=== PATIENT | female | born 1945 | race Caucasian/White ===

== ENCOUNTER 2017-07-04 11:24 | Inpatient (IN) | payer MEDICARE ==
[2017-07-04 11:44] LABS: #Basophils 0.1 thou/uL (0.0-0.2); #Eosinphils 0.1 thou/uL (0.0-0.7); #Lymphocytes 1.2 thou/uL (1.20-3.40); #Monocytes 1.3 thou/uL (0.11-0.59); #Neutrophils 11.3 thou/uL (1.40-6.50); %Basophils 0.4 % (0.0-1.0); %Eosinophils 0.4 % (0.0-10.0); %Lymphocytes 8.4 % (21.0-51.0); %Monocytes 9.2 % (0.0-10.0); %Neutrophils 81.7 % (42.0-75.0); Hemoglobin 8.8 g/dL (12.0-16.0); Mean Corpuscular HGB CONC 30.2 g/dL (32.0-36.0); Mean Corpuscular Hemoglobin 22.9 pg (27.0-31.0); Mean Platelet Volume 9.4 fL (7.4-10.4); Platelet Count 267 thou/uL (130-400); RBC Distribution Width 15.8 % (11.5-14.5); Red Blood Cell (RBC) Count 3.84 mill/uL (4.20-5.40); White Blood Cell (WBC) Count 13.8 thou/uL (4.8-10.8)
[2017-07-04 11:52] LABS: INR-International Normal Ratio 1.1; PTT 24.1 SEC (22.9-36.1); Prothrombin Time 14.4 SEC (12.0-14.7)
[2017-07-04 12:13] LABS: ALT (SGPT) 15 U/L (8-55); AST (SGOT) 26 U/L (5-34); Albumin 4.2 g/dL (3.4-4.8); Alkaline Phosphatase 71 U/L (40-150); Anion Gap 16 mmol/L (10-20); BUN (Urea Nitrogen) 10 mg/dL (9.8-20.1); Bilirubin, Total 0.4 mg/dL (0.2-1.2); Calc. Creatinine Clearance 0 mL/min (70-130); Calcium 9.9 mg/dL (7.8-10.44); Carbon Dioxide 20 mmol/L (23-31); Chloride 105 mmol/L (98-107); Estimated GFR-MDRD 51; Globulin 2.8 g/dL (2.4-3.5); Glucose 152 mg/dL (83-110); Potassium 3.7 mmol/L (3.5-5.1); Sodium 137 mmol/L (136-145)
[2017-07-04 12:23] LABS: Troponin I 0.737 ng/mL (< 0.028)
[2017-07-04] MEDS ORDERED: Nitroglycerin 0.4 MG TAB (25 Tab Bottle) SL PRN (12:29)
[2017-07-04] MEDS ORDERED: Morphine 4 MG/ML VIAL SLOW IVP PRN ×2 (12:29)
[2017-07-04] MEDS ORDERED: Aggrastat 12.5 MG/250 ML 250 ML IVPB SCH (12:30)
[2017-07-04] MEDS: Sodium Chloride 0.9% 1,000 ML IV SCH ×2 (12:30→22:51)
[2017-07-04] MEDS ORDERED: Mag-Al 1200 mg/1200 mg/30 ML UDCUP PO PRN (12:34)
[2017-07-04] MEDS ORDERED: Milk Of Magnesia 30 ML UDCUP PO PRN (12:34)
[2017-07-04] MEDS ORDERED: Ondansetron HCl/PF 4 MG/2 ML Vial IVP PRN (12:40)
[2017-07-04 12:56] LABS: Iron 21 ug/dL (50-170); Iron Binding Capacity, Total 465 mcg/dL (265-497)
--- NOTE | 2017-07-04 13:55 | RAD ---
CHEST ONE VIEW: History: 72-year-old female for post interventional cardiology evaluation. FINDINGS: Monitor leads overlie the chest. Evidence for a moderate sized hiatal hernia. Heart size is within no rmal limits. Mild increased bronchovascular markings bilaterally without confluent pneumonia. No pneu mothorax or pleural effusion. IMPRESSION: Moderate sized hiatal hernia. Atherosclerosis of the aorta with ectasia. No evidence for pneumothorax or confluent pneumonia or pleural effusion. POS: C
--- NOTE | 2017-07-04 14:27 | HP ---
HISTORY: Ms. Vero Victoria is a 72-year-old white female without any significant past medical history. She does not take any medications except for vitamins. She had an episode of chest pain 3-4 days ago that lasted for 5-10 minutes. Then, this morning at approximately 8:30 a.m., she had onset of substernal chest pressure associated with diaphoresis, but no nausea, vomiting, or shortness of breath. Eventually, she called 911 and was found to have changes consistent with STEMI on her EKG and was brought to [facility] for further evaluation. She continues to have ongoing pain. She was given aspirin 324 mg and 1 sublingual nitroglycerin. PAST MEDICAL HISTORY: She denies any history of hypertension, diabetes or hypercholesterolemia. No history of anemia. MEDICATIONS: Vitamins. ALLERGIES: PENICILLIN. OPERATIONS: Cataract surgery. SOCIAL HISTORY: She smoked one-half pack per day, but stopped 3 years ago. She does not drink. FAMILY HISTORY: Father of myocardial infarction and brothers had myocardial infarction. REVIEW OF SYSTEMS: A 12 point review of systems is unremarkable, even denying any history of hematochezia or melena. PHYSICAL EXAMINATION: VITAL SIGNS: Blood pressure 120/80, pulse 90. HEENT: PERRL with bilateral ear creases. LUNGS: Chest is clear. CARDIAC: S1 and S2 are normal, without any S3, S4 or murmurs. Carotid upstrokes normal, without bruits. ABDOMEN: Normal bowel sounds, without tenderness or organomegaly. EXTREMITIES: Revealed no clubbing, cyanosis or edema. NEUROLOGIC: Grossly intact. SKIN: Warm and dry. LABORATORY DATA AND IMAGING: (no laboratory was available while at the time of going to the cardiac catheterization lab). Hemoglobin 8.8, hematocrit 29.2, white count 13,800. INR 1.1. Sodium 137, potassium 3.7, chloride 105, carbon dioxide 20, BUN 10, creatinine 1.02, glucose 152, AST and ALT are normal. EKG revealed normal sinus rhythm with [address] segment elevation in lead 3, [address] elevation in 2, 3, V5 and V6 and 1-[address] elevation in V3 and V4. There is ST segment depression in lead 1. IMPRESSION: 1. Inferoposterior and lateral ST-elevation myocardial infarction. 2. Former smoker. 3. Positive family history. 3. Elevated glucose. 4. Unknown cholesterol status. 5. Probable iron deficiency anemia. PLAN: The situation was discussed with the patient. It was recommended that she undergo emergent catheterization. Risks were discussed including , myocardial infarction, dye reaction, vascular injury, CVA, transfusion, renal damage requiring dialysis, limb loss, etc. Risk of stenting were discussed including , myocardial infarction, emergent CABG, restenosis, stent thrombosis, vessel perforation, etc. We discussed a bare metal stent versus drug-eluting stent. She denies any history of stomach ulcers, gastrointestinal bleeding, etc., history of stroke or any upcoming surgery. The decision was made to place a drug-eluting stent (this decision was made prior to receiving laboratory). NELSY
[2017-07-04 17:13] VITALS: BMI 25.1
[2017-07-04] MEDS ORDERED: Iopamidol 370 76% 50 ML VIAL FS ONE (17:22)
[2017-07-04] MEDS ORDERED: Iopamidol 370 76% 100 ML VIAL ONE (17:22)
[2017-07-04] MEDS ORDERED: DOPamine 400 MG/D5W 250 ML 250 ML IVPB SCH (18:30)
[2017-07-04 21:06] LABS: CKMB 463.1 ng/mL (0-6.6); Troponin I 197.779 ng/mL (< 0.028)
[2017-07-04] MEDS ORDERED: Morphine 2 MG/ML SYRINGE SLOW IVP PRN (23:03)
--- NOTE | 2017-07-04 23:16 | CCL ---
INDICATION: Inferior, posterior, lateral STEMI. Patient was brought to the catheterization lab from the emergency room. The right groin was prepped and draped. 1% lidocaine was infiltrated. A 6 Guatemalan sheath was placed into the right femoral artery. Heparin 3000 units given. The patient was also given an additional 5000 units of heparin. ACT was 200 and 300 and at the conclusion of the case an additional 2000 units of heparin was given Then. 6-Guatemalan Cris left 4 views for left coronary arteriography. This was removed and a 6-Guatemalan Cris right 4 guide catheter was inserted. A floppy choice was then advanced into the distal right coronary artery. There was some difficulty in traversing the totally occluded area. The area was predilated with an Emerge 3.0 x 15 mm balloon. Synergy 4.0 x 28 mm stent was then positioned in the mid right coronary artery and deployed. The patient was given Plavix 600 mg p.o. Final result was excellent with JUAN JOSE 3 flow. RESULTS: CORONARY ARTERIOGRAPHY: 1. Left main was normal. 2. The LAD had a 40% proximal stenosis. There was a very large high diagonal with a 70% stenosis at its takeoff and then a 40% mid vessel stenosis. 3. The circumflex was small and normal. 4. The right coronary was totally occluded in its mid portion. The distal vessel was seen to fill retrograde from the left. INTERVENTION RESULTS: The initial right coronary artery lesion was totally occluded. The final lesion was 0%. IMPRESSION: 1. Two-vessel coronary artery disease (left anterior descending and right coronary). 2. Successful stent placement in the mid RCA. NELSY
[2017-07-05 04:41] LABS: #Basophils 0.1 thou/uL (0.0-0.2); #Lymphocytes 1.1 thou/uL (1.20-3.40); #Monocytes 1.1 thou/uL (0.11-0.59); #Neutrophils 6.1 thou/uL (1.40-6.50); %Basophils 0.7 % (0.0-1.0); %Eosinophils 0.2 % (0.0-10.0); %Lymphocytes 13.7 % (21.0-51.0); %Monocytes 12.5 % (0.0-10.0); %Neutrophils 72.9 % (42.0-75.0); Hemoglobin 7.2 g/dL (12.0-16.0); Mean Corpuscular HGB CONC 30.8 g/dL (32.0-36.0); Mean Corpuscular Hemoglobin 23.3 pg (27.0-31.0); Mean Corpuscular Volume 75.7 fl (81.0-99.0); Platelet Count 277 thou/uL (130-400); RBC Distribution Width 15.5 % (11.5-14.5); Red Blood Cell (RBC) Count 3.09 mill/uL (4.20-5.40); White Blood Cell (WBC) Count 8.4 thou/uL (4.8-10.8)
[2017-07-05 04:55] LABS: Hemoglobin A1c 5.6 % (4.0-6.0)
[2017-07-05 05:12] LABS: ALT (SGPT) 66 U/L (8-55); AST (SGOT) 312 U/L (5-34); Albumin 3.5 g/dL (3.4-4.8); Alkaline Phosphatase 56 U/L (40-150); Anion Gap 12 mmol/L (10-20); BUN (Urea Nitrogen) 12 mg/dL (9.8-20.1); Bilirubin, Total 0.5 mg/dL (0.2-1.2); Calc. Creatinine Clearance 59 mL/min (70-130); Calcium 8.8 mg/dL (7.8-10.44); Carbon Dioxide 19 mmol/L (23-31); Cardiac Risk 3.4 (Less than 4.5); Chloride 111 mmol/L (98-107); Cholesterol 151 mg/dl (< 200 Desired); Estimated GFR-MDRD 62; Globulin 2.2 g/dL (2.4-3.5); Glucose 122 mg/dL (83-110); HDL Cholesterol 45 mg/dL (>60 Neg Risk); LDL Cholesterol, Calculated 94 mg/dL; Potassium 3.9 mmol/L (3.5-5.1); Protein, Total 5.7 g/dL (6.0-8.3); Sodium 138 mmol/L (136-145); Triglycerides 62 mg/dL (Less than 150)
[2017-07-05 05:21] LABS: CKMB 284.2 ng/mL (0-6.6); Critical Call CKMBM RESULT DECREASING
[2017-07-05 05:35] LABS: Critical Call Chem Troponin I RESULT DECREASING; Troponin I 192.076 ng/mL (< 0.028)
[2017-07-05] MEDS ORDERED: Furosemide 20 MG/2 ML VIAL SLOW IVP SCH (09:00)
[2017-07-05] MEDS ORDERED: FLU VACC TS2017-18 (>65YR) 0.5 ML SYRINGE IM ONE (09:00)
[2017-07-05] MEDS ORDERED: Prevnar 13-Val Conj/PF 0.5 ML SYRINGE IM ONE (09:00)
[2017-07-05] MEDS: Clopidogrel Bisulfate 75 MG TAB PO SCH (09:37)
[2017-07-05 13:00] LABS: CKMB 149.2 ng/mL (0-6.6); Critical Call CKMBM RESULT DECREASING
[2017-07-05 13:17] LABS: Critical Call Chem Troponin I RESULT DECREASING; Troponin I 138.502 ng/mL (< 0.028)
--- NOTE | 2017-07-05 15:15 | CON ---
DATE OF CONSULTATION: 07/05/2017 HISTORY OF PRESENT ILLNESS: Ms. Victoria is a 72-year-old female. She has no source of routine heal th care. She has never had a colonoscopy. She presented to the emergency department with chest discomfort. She had diaphoresis associated with this. She had ST elevation on EKG and was transferred from [facility] to [place] and went to the catheterization lab for ongoing pain until she had a right coronary s tent placed. She is pain free now. She is anemic and is receiving transfusions. She denies abdominal pain. She had blood with a bowel movement a few days ago, but it was drops of b lood after straining for hard stool. She has never thrown up blood. She denies abdominal discomfort or chronic constipation. She has had no melena. She has never had a colonoscopy. PAST MEDICAL HISTORY: Otherwise unremarkable. She says she has been treated for hypertension in the past, but her blood pressure gets low on blood pressure pills, so she did take any blood pressure pi lls. SOCIAL HISTORY: She was a mbaf-csju-y-day smoker; she does not smoke now. She is a nondrinker. Barron s not use drugs. ALLERGIES: She reports an allergy to PENICILLIN. MEDICATIONS: Prior to admission vitamins. REVIEW OF SYSTEMS: Otherwise, 10-point negative. Specifically, she denies shortness of breath on a daily basis, dyspnea on exertion, orthopnea, paroxysmal nocturnal dyspnea. She did have chest pain 3 -4 days prior to admission, but this resolved and then when it recurred, she called an ambulance. PHYSICAL EXAMINATION: GENERAL: She is afebrile. Blood pressure 111/61, heart rate 78, respiratory rate is 18, oximetry is 97. HEENT: Pupils are equal. Sclerae is anicteric. NECK: Supple. LUNGS: Clear. HEART: Regular rhythm. S1 and S2 are normal. ABDOMEN: Soft and nontender. EXTREMITIES: Without clubbing, cyanosis, or edema. LABORATORY DATA: White count 8.4, hemoglobin 7.2, platelets 277. Sodium 138, potassium 3.9, chlorid e 111, bicarbonate 19, BUN 12, creatinine 0.9. She had an iron level of 21, TIBC of 465, AST 312, AL T 66, alkaline phosphatase 56. Albumin was normal at 3.5, globulin was low at 2.2. IMPRESSION: 1. Myocardial infarction with a peak troponin of 197, status post right coronary stenting. 2. Mild hyperchloremic acidosis with ongoing mild hypotension. 3. Iron deficiency anemia, most likely secondary to chronic gastrointestinal blood loss. Gastroente rology needs to be involved, though she does not need an acute endoscopic intervention at this time. Ideally, we will need to set up endoscopy in the near future as an outpatient. She is currently philippe ng transfused. 4. Hyperglobulinemia of unclear significance. There is no urinalysis. She is not hypoalbuminemic, so I am not really sure what to make of this. 5. Elevated liver enzymes. AST greater than ALT, ? related to alcohol. She does not readily admit alcohol, says she quit smoking. Still on low-dose dopamine. I would give her another liter of saline and then switch her to half nor mal saline. In my opinion, she is stable to move out of the Critical Care Unit when the telemetry bed becomes denny ilable. GI should be counseled mainly for contact points, so they can arrange a followup endoscopy i n my opinion. This is a 70-minute consult, greater than 50% of the consult was spent on the unit coordinating care with the nursing staff, reviewing radiographs, reviewing records, EKGs, and lab work. With regard to her smoking history, it is unclear whether or not she has obstructive lung disease. C linically, she does not provide a history of this. I am very concerned that she will be noncompliant with followup, but again she is an adult. All we letitia aguilra do is arrange followup. She very quickly admits that she does like doctors and she cannot remembe r the last time she saw one.
--- NOTE | 2017-07-05 22:05 | CON ---
DATE OF CONSULTATION: 07/05/2017 GI INPATIENT CONSULTATION NOTE REQUESTING PHYSICIAN: Dr. Rogelio Simon. REASON FOR CONSULTATION: Anemia, status post recent STEMI with stent placement. HISTORY OF PRESENT ILLNESS: Vero Victoria is a very pleasant 72-year-old woman with no significant past medical or surgical history, who presented to the hospital yesterday morning after the acute onset of severe chest pain and shortness of breath. She was found to have an ST elevation myocardial infarction on EKG with elevation in troponin. She was taken to the bundle tier and labeler by Dr. Simon yesterday and was found to have 2-vessel disease with 40% occlusion of the LAD and 100% occlusion of the RCA. She underwent drug-eluting stent placement to the RCA with good result. Patient states she is essentially asymptomatic now, but she does remain on a dopamine drip today. She is having no further chest pain or shortness of breath. She is not feeling any palpitations. She is getting an echocardiogram today. Labs came back from admission and did show that she has iron deficiency anemia. Initial hemoglobin was 8.8 and this drifted down to 7.2 today. Iron studies show iron of 21 with TIBC of 465 and it is microcytic with MCV of 75.7. The patient herself denies any overt bleeding from anywhere or any gastrointestinal symptoms: She denies nausea, vomiting, heartburn, dysphagia, abdominal pain, melena, hematochezia, bright red blood per rectum, diarrhea, or constipation. Her weight has been stable recently. She has never undergone a prior EGD or colonoscopy. She does take some ibuprofen on a p.r.n. basis. From time to time she did get Plavix load yesterday, but there has been no overt bleeding today. PAST MEDICAL HISTORY: Cataract surgery, ST elevation myocardial infarction yesterday 07/04/2016, status post drug-eluting stent placement to the RCA. ALLERGIES: PENICILLIN. OUTPATIENT MEDICATIONS: Ibuprofen p.r.n., multivitamin. SOCIAL HISTORY: She is a former smoker. No alcohol use. FAMILY HISTORY: Noncontributory. PHYSICAL EXAMINATION: VITAL SIGNS: Temperature 98.3, blood pressure 94/60, pulse 83, 94% oxygen saturation on room air. GENERAL: A 72-year-old woman sitting up in bed comfortably in no acute distress. SKIN: She is a bit pale, no jaundice, no rashes were palpable. EYES: No scleral icterus. Extraocular movements are intact. ENT: Mucous membranes moist, no oral lesions. LYMPH: No submandibular or supraclavicular lymphadenopathy. THYROID: Nontender to palpation. HEART: Regular rate and rhythm. LUNGS: Clear to auscultation bilaterally. ABDOMEN: Soft and nontender to palpation. EXTREMITIES: No peripheral edema. VESSELS: Radial pulses 2+ bilaterally. NEUROLOGICAL: Cranial nerves II-XII intact bilaterally. No focal deficits. LABORATORY STUDIES: Hemoglobin 7.2, MCV 75.7, iron 21, TIBC 465, WBC 8.4, platelets 277. INR 1.1. CK-MB is 149. Sodium 138, potassium 3.9, BUN 12, creatinine 0.90, hemoglobin A1c only 5.6%. Total bilirubin 0.5, alkaline phosphatase 56, AST 26 on admission, went up to 312 today, ALT 66, albumin 3.5. ASSESSMENT AND PLAN: 1. Iron deficiency anemia, with no history or evidence of overt gastrointestinal bleeding. 2. Recent ST elevation myocardial infarction yesterday, status post drug- eluting stent placement to the RCA yesterday. This is a little bit of a complicated situation given that the patient needed drug-eluting stent placement yesterday and has received Plavix load and is going to need to be committed to dual antiplatelet therapy for at least the next several months. I would not recommend discontinuing dual antiplatelet therapy in her case. Fortunately, there has been no evidence of overt bleeding either prior to presentation over the past day since arrival. I do suspect possible occult GI bleeding source, but there is no need for urgent endoscopic investigation. In fact, in the context of such a recent STEMI, the risks would probably outweigh the benefits at this point, unless the patient were to develop evidence of overt bleeding. I discussed with her that she does need endoscopic investigation with EGD and colonoscopy, but this would probably best be performed in the outpatient setting after several weeks after she has had some chance to recover. The patient tells me that she is confident that she will follow up as requested. I will plan to see her back in clinic in a couple of weeks and we will recheck H&H at that time. Please have the patient on an iron supplement as well as a daily oral proton pump inhibitor in the meantime. At followup, we will likely plan to schedule her for outpatient EGD and colonoscopy , assuming her cardiac status is satisfactory at that time. Thank you for the consultation. We will plan to see her in a couple of weeks in my clinic. Please call at any time with questions or concerns in the meantime. NELSY
[2017-07-06 06:22] LABS: #Basophils 0.1 thou/uL (0.0-0.2); #Eosinphils 0.2 thou/uL (0.0-0.7); #Monocytes 0.9 thou/uL (0.11-0.59); #Neutrophils 5.6 thou/uL (1.40-6.50); %Basophils 1.1 % (0.0-1.0); %Eosinophils 2.7 % (0.0-10.0); %Lymphocytes 12.4 % (21.0-51.0); %Monocytes 11.8 % (0.0-10.0); Hemoglobin 9.6 g/dL (12.0-16.0); Mean Corpuscular HGB CONC 31.7 g/dL (32.0-36.0); Mean Corpuscular Hemoglobin 25.3 pg (27.0-31.0); Mean Corpuscular Volume 79.8 fl (81.0-99.0); Mean Platelet Volume 9.1 fL (7.4-10.4); Platelet Count 244 thou/uL (130-400); RBC Distribution Width 18.3 % (11.5-14.5); Red Blood Cell (RBC) Count 3.79 mill/uL (4.20-5.40); White Blood Cell (WBC) Count 7.8 thou/uL (4.8-10.8)
[2017-07-06 06:52] LABS: ALT (SGPT) 59 U/L (8-55); AST (SGOT) 170 U/L (5-34); Albumin 3.6 g/dL (3.4-4.8); Alkaline Phosphatase 59 U/L (40-150); Anion Gap 11 mmol/L (10-20); BUN (Urea Nitrogen) 13 mg/dL (9.8-20.1); Bilirubin, Total 0.7 mg/dL (0.2-1.2); Calc. Creatinine Clearance 0 mL/min (70-130); Calcium 9.1 mg/dL (7.8-10.44); Carbon Dioxide 21 mmol/L (23-31); Chloride 108 mmol/L (98-107); Estimated GFR-MDRD 60; Globulin 2.4 g/dL (2.4-3.5); Glucose 103 mg/dL (83-110); Potassium 3.9 mmol/L (3.5-5.1); Sodium 136 mmol/L (136-145)
[2017-07-06] MEDS: Clopidogrel Bisulfate 75 MG TAB PO SCH (07:57)
[2017-07-06] MEDS: Ferrous Sulfate 325 MG TAB PO SCH ×3 (07:57→16:47)
[2017-07-06] MEDS ORDERED: Sodium Chloride 0.65% Nasal 44 ML BOT EA NARE PRN (09:10)
[2017-07-06] MEDS: Sodium Chloride 0.9% 500 ML IV SCH ×2 (11:13→11:14)
--- NOTE | 2017-07-06 22:17 | PRG ---
DATE OF SERVICE: 07/06/2017 SUBJECTIVE: Vero Victoria did well overnight. She has no new complaints. She was seen by Gastroenterology. She is on a tiny dose of dopamine this morning. I was hoping to g et this off with 500 mL saline bolus. OBJECTIVE: LUNGS: Clear. CARDIOVASCULAR: Regular rhythm. ABDOMEN: Soft. ASSESSMENT AND PLAN: Gastroenterology plans to follow her as an outpatient, which is what she wanted . Hopefully, she will be compliant with follow up. Her hemoglobin has gone from 7.2 to 9.6. Obviou sldony, there is no gastrointestinal emergency and especially after an acute myocardial infarction it is probably best to wait for procedures. She is stable to move out of the Critical Care Unit in my opinion. Her elevated liver enzymes appear to be improving.
[2017-07-07 05:14] LABS: #Basophils 0.1 thou/uL (0.0-0.2); #Eosinphils 0.3 thou/uL (0.0-0.7); #Lymphocytes 1.1 thou/uL (1.20-3.40); #Monocytes 0.9 thou/uL (0.11-0.59); #Neutrophils 4.2 thou/uL (1.40-6.50); %Basophils 1.2 % (0.0-1.0); %Eosinophils 4.7 % (0.0-10.0); %Monocytes 13.1 % (0.0-10.0); Hemoglobin 9.5 g/dL (12.0-16.0); Mean Corpuscular HGB CONC 31.1 g/dL (32.0-36.0); Mean Corpuscular Hemoglobin 24.8 pg (27.0-31.0); Mean Corpuscular Volume 79.7 fl (81.0-99.0); Mean Platelet Volume 9.5 fL (7.4-10.4); Platelet Count 219 thou/uL (130-400); RBC Distribution Width 18.4 % (11.5-14.5); Red Blood Cell (RBC) Count 3.81 mill/uL (4.20-5.40); White Blood Cell (WBC) Count 6.6 thou/uL (4.8-10.8)
[2017-07-07 05:31] LABS: ALT (SGPT) 48 U/L (8-55); AST (SGOT) 89 U/L (5-34); Albumin 3.3 g/dL (3.4-4.8); Alkaline Phosphatase 59 U/L (40-150); Anion Gap 12 mmol/L (10-20); BUN (Urea Nitrogen) 11 mg/dL (9.8-20.1); Bilirubin, Total 0.5 mg/dL (0.2-1.2); Calc. Creatinine Clearance 0 mL/min (70-130); Calcium 9.2 mg/dL (7.8-10.44); Carbon Dioxide 23 mmol/L (23-31); Chloride 109 mmol/L (98-107); Estimated GFR-MDRD 63; Globulin 2.4 g/dL (2.4-3.5); Glucose 96 mg/dL (83-110); Potassium 3.6 mmol/L (3.5-5.1); Protein, Total 5.7 g/dL (6.0-8.3); Sodium 140 mmol/L (136-145)
[2017-07-07] MEDS: Clopidogrel Bisulfate 75 MG TAB PO SCH (09:31)
[2017-07-07] MEDS: Ferrous Sulfate 325 MG TAB PO SCH ×3 (09:31→16:47)
[2017-07-08 05:41] LABS: ALT (SGPT) 38 U/L (8-55); AST (SGOT) 50 U/L (5-34); Albumin 3.3 g/dL (3.4-4.8); Alkaline Phosphatase 61 U/L (40-150); Anion Gap 14 mmol/L (10-20); BUN (Urea Nitrogen) 10 mg/dL (9.8-20.1); Bilirubin, Total 0.4 mg/dL (0.2-1.2); Calc. Creatinine Clearance 57 mL/min (70-130); Carbon Dioxide 22 mmol/L (23-31); Chloride 110 mmol/L (98-107); Estimated GFR-MDRD 59; Globulin 2.3 g/dL (2.4-3.5); Glucose 103 mg/dL (83-110); Potassium 3.6 mmol/L (3.5-5.1); Protein, Total 5.6 g/dL (6.0-8.3); Sodium 142 mmol/L (136-145)
[2017-07-08 05:51] LABS: Band 1 % (5-11); Eosinophils 4 % (0-10); Hemoglobin 9.4 g/dL (12.0-16.0); Hypochromia SLIGHT = 6-15 cells (100X) (0-5/hpf); Lymphocytes 18 % (21-51); MDiff Complete? YES; Mean Corpuscular HGB CONC 31.7 g/dL (32.0-36.0); Mean Corpuscular Hemoglobin 25.3 pg (27.0-31.0); Mean Corpuscular Volume 79.9 fl (81.0-99.0); Mean Platelet Volume 9.8 fL (7.4-10.4); Microcytosis SLIGHT = 6-15 cells (100X) (0-5/hpf); Monocytes 14 % (0-10); Myelocyte 1 % (0-0); Neutrophil 62 % (42-75); PLT Morphology Comment Appears Adequate; Platelet Count 227 thou/uL (130-400); RBC Distribution Width 18.9 % (11.5-14.5); White Blood Cell (WBC) Count 6.1 thou/uL (4.8-10.8)
[2017-07-08] MEDS: Clopidogrel Bisulfate 75 MG TAB PO SCH (09:59)
[2017-07-08] MEDS: Ferrous Sulfate 325 MG TAB PO SCH ×3 (09:59→17:23)
[2017-07-08] MEDS: Carvedilol 3.125 MG TAB PO SCH (17:23)
[2017-07-08] MEDS ORDERED: Atorvastatin Calcium 20 MG TAB PO SCH (21:00)
--- NOTE | 2017-07-08 23:27 | DIS ---
DISCHARGE DIAGNOSES: 1. Inferoposterior and lateral ST-elevation myocardial infarction with peak MB 463.1, peak troponin I 197.799. 2. Drug-eluting stent placed in the mid right coronary artery. 3. Two-vessel coronary artery disease (left anterior descending artery and right coronary artery) for medical therapy. 3. Former smoker. 4. Positive family history. 5. Hypercholesterolemia. 6. Severe iron-deficiency anemia. DISCHARGE DISPOSITION: The patient will be seen in 1 month with CBC, complete metabolic panel, and fasting lipid profile is being obtained. She also will follow up with Dr. Lilly for further GI evaluation. DISCHARGE MEDICATIONS: Aspirin 81 q.a.m., atorvastatin 20 mg daily, carvedilol 3.125 b.i.d., Plavix 75 daily, ferrous sulfate 325 t.i.d., nitroglycerin 0.4 mg p.r.n., pantoprazole 40 daily. HOSPITAL COURSE: Vero Victoria presented on 07/04/2017 with chest discomfort and was found to have inferoposterior and lateral STEMI. She went directly to the supervisor labor gang. Prior to labs being returned, a drug-eluting stent-Synergy 4.0 x 28 mm was placed in a totally occluded mid right coronary artery. There also was a 40% proximal LAD and a large high diagonal with a 70% lesion at the takeoff and a 40% mid lesion. After the stent was placed, labs returned and it was found that she had a hemoglobin of 8.8. Stool guaiacs were ordered; however , they were never performed by the nursing personnel. The following day, the patient did have a drop in her hemoglobin to 7.2 after she was hydrated after catheterization and she did receive 2 units of packed red blood cells. Her iron was 21, TIBC 465, cholesterol 151, triglycerides 62, HDL 45, LDL 94. The morning after her myocardial infarction, there was evidence of shock liver with AST going from normal to 312 and ALT going from normal to 66. These have essentially returned to normal at the time of discharge and statin was started at that time. She was seen by Dr. Lilly and will be further evaluated as an outpatient from her GI standpoint. There was no evidence of significant acute gastrointestinal bleeding. At the time of discharge, she was walking 450 feet in the bailon and was asymptomatic. [facility] HOSPITALEldon
[2017-07-09 05:43] LABS: ALT (SGPT) 30 U/L (8-55); AST (SGOT) 28 U/L (5-34); Albumin 3.4 g/dL (3.4-4.8); Alkaline Phosphatase 62 U/L (40-150); Anion Gap 10 mmol/L (10-20); BUN (Urea Nitrogen) 10 mg/dL (9.8-20.1); Bilirubin, Total 0.3 mg/dL (0.2-1.2); Calc. Creatinine Clearance 57 mL/min (70-130); Carbon Dioxide 23 mmol/L (23-31); Chloride 111 mmol/L (98-107); Estimated GFR-MDRD 59; Globulin 2.3 g/dL (2.4-3.5); Glucose 103 mg/dL (83-110); Potassium 3.7 mmol/L (3.5-5.1); Protein, Total 5.7 g/dL (6.0-8.3); Sodium 140 mmol/L (136-145)
[2017-07-09 06:01] LABS: Band 4 % (5-11); Hemoglobin 9.5 g/dL (12.0-16.0); Hypochromia SLIGHT = 6-15 cells (100X) (0-5/hpf); Lymphocytes 22 % (21-51); MDiff Complete? YES; Mean Corpuscular HGB CONC 31.2 g/dL (32.0-36.0); Mean Corpuscular Hemoglobin 25.3 pg (27.0-31.0); Mean Corpuscular Volume 80.9 fl (81.0-99.0); Mean Platelet Volume 9.9 fL (7.4-10.4); Monocytes 13 % (0-10); Neutrophil 61 % (42-75); Nucleated RBC 1 % (0); PLT Morphology Comment Appears Adequate; Platelet Count 234 thou/uL (130-400); RBC Distribution Width 19.3 % (11.5-14.5); Red Blood Cell (RBC) Count 3.76 mill/uL (4.20-5.40); White Blood Cell (WBC) Count 5.8 thou/uL (4.8-10.8)
[2017-07-09] MEDS: Ferrous Sulfate 325 MG TAB PO SCH (08:53)
[2017-07-09] MEDS: Clopidogrel Bisulfate 75 MG TAB PO SCH (08:53)
[2017-07-09] MEDS: Carvedilol 3.125 MG TAB PO SCH (08:53)
[2017-07-09 11:16] VITALS: BP 112/66; TEMP 98.5
== END 2017-07-09 11:35 | disposition home or self-care (01) | DRG 247 ==
LOC: ERS 11:24 → CCU 11:30 → ERS 11:30 → CCU 17:06 → 2NO 07-06 20:33
PROVIDERS: ADMIT Internal Medicine Cardiovascular Disease; ATTEND Internal Medicine Cardiovascular Disease
PROC: 4A023N7 Measurement of Cardiac Sampling and Pressure, Left Heart, Percutaneous Approach (ICD-10-PCS; principal; 2017-07-04)
PROC: 027034Z Dilation of Coronary Artery, One Artery with Drug-eluting Intraluminal Device, Percutaneous Approach (ICD-10-PCS; 2017-07-04)
PROC: B2111ZZ Fluoroscopy of Multiple Coronary Arteries using Low Osmolar Contrast (ICD-10-PCS; 2017-07-04)
PROC: 30233N1 Transfusion of Nonautologous Red Blood Cells into Peripheral Vein, Percutaneous Approach (ICD-10-PCS; 2017-07-05)
DX: I21.19 ST elevation (STEMI) myocardial infarction involving other coronary artery of inferior wall (principal); K92.2 Gastrointestinal hemorrhage, unspecified; I25.10 Atherosclerotic heart disease of native coronary artery without angina pectoris; Z88.0 Allergy status to penicillin; Z87.891 Personal history of nicotine dependence; D50.9 Iron deficiency anemia, unspecified; E78.00 Pure hypercholesterolemia, unspecified
CPT/HCPCS: 36415; 36430; 71045; 80053; 80061; 82274; 82553; 83036; 83540; 83550; 84484; 85025; 85347; 85610; 85730; 86850; 86900; 86901; 90471; 90670; 90682; 92928; 93005; 93010; 93306; 93454; 93798; A4216; C1725; C1769; C1874; C1887; C9600; G0008; G0009; J1265; J1940; J2270; J2405; P9016; Q2036

== ENCOUNTER 2018-03-17 05:49 | Day surgery (SDC) | payer MEDICARE ==
[2018-03-16 16:42] VITALS: BMI 23.0
[2018-03-17] MEDS ORDERED: Midazolam HCl 2 mg/2 ml Vial ONE ×2 (06:37→06:59)
[2018-03-17] MEDS ORDERED: Fentanyl 100 MCG/2 ML VIAL ONE ×2 (06:37→06:59)
[2018-03-17 06:47] LABS: Hemoglobin 14.2 g/dL (12.0-16.0); Mean Corpuscular HGB CONC 32.3 g/dL (32.0-36.0); Mean Corpuscular Hemoglobin 30.9 pg (27.0-31.0); Mean Corpuscular Volume 95.5 fL (78.0-98.0); Mean Platelet Volume 8.8 fL (7.4-10.4); Platelet Count 232 thou/uL (130-400); RBC Distribution Width 13.8 % (11.5-14.5); Red Blood Cell (RBC) Count 4.59 mill/uL (4.20-5.40); White Blood Cell (WBC) Count 5.6 thou/uL (4.8-10.8)
[2018-03-17] MEDS ORDERED: Lidocaine 0.5%/Epinephrine 1:200,000 50 ml Vial ONE (06:55)
[2018-03-17 07:07] LABS: Anion Gap 16 mmol/L (10-20); BUN (Urea Nitrogen) 13 mg/dL (9.8-20.1); Calc. Creatinine Clearance 49 mL/min (70-130); Carbon Dioxide 20 mmol/L (23-31); Chloride 108 mmol/L (98-107); Estimated GFR-MDRD 56; Glucose 123 mg/dL (83-110); Potassium 4.8 mmol/L (3.5-5.1); Sodium 139 mmol/L (136-145)
[2018-03-17] MEDS ORDERED: Clindamycin/D5W 600 mg/50 ml Premix Bag ONE (07:08)
[2018-03-17] MEDS ORDERED: Sodium Chloride 0.9% 10 ML ONE (07:12)
--- NOTE | 2018-03-17 09:09 | OP ---
DATE OF PROCEDURE: 03/17/2018 OPERATION: Open reduction internal fixation of left distal radius fracture. PREOPERATIVE DIAGNOSIS: Displaced left distal radius fracture. POSTOPERATIVE DIAGNOSIS: Displaced left distal radius fracture. COMPLICATIONS: None. ESTIMATED BLOOD LOSS: Minimal. SURGEON: Lenny Marley M.D. ANESTHESIA: Regional with Kunal block. IMPLANTS: Synthes volar distal radius plate. INDICATIONS: Ms. Victoria is a 73-year-old female who fractured her wrist. She was indicated for op en reduction internal fixation. She had a recent cardiac stent, so she was only cleared for a region al anesthetic. Risks have been reviewed with her in detail. She elected to proceed with the operati on. DESCRIPTION OF PROCEDURE: Ms. Victoria was identified in the preoperative holding area. Her correct extremity was marked. She was carried to the operating room. She was positioned supine. A Smock bl ock was placed. At this point, we prepped and draped the upper extremity. We then began the procedu re with a volar approach to the wrist. We dissected down to the subcutaneous tissues to the FCR tend on which was identified. We opened the fascia of the FCR tendon sheath superficially and deeply. We then retracted the deep musculature. We elevated the pronator quadratus from the distal radius. We encountered the displaced fracture. We used a [place] elevator to reduce the fracture back into its a natomic position. At this point, we applied a Synthes volar distal radius plate. Multiple screws we re placed proximally and distally. We had good fixation. We took final x-ray images. We thoroughly irrigated. We then closed with a 2-0 Vicryl suture followed by abdiel for the skin. A sterile john ssing was applied. The patient was taken to the recovery room in good condition.
[2018-03-17] MEDS ORDERED: HYDROcodone/Acetaminophen 5/325 mg Tablet ONE ×2 (09:30→09:58)
[2018-03-17] MEDS ORDERED: Morphine 4 MG/ML VIAL ONE (09:59)
--- NOTE | 2018-03-19 17:47 | EKG ---
Test Reason : PREOP Blood Pressure : / mmHG Vent. Rate : 063 BPM Atrial Rate : 063 BPM P-R Int : 170 ms QRS Dur : 092 ms QT Int : 448 ms P-R-T Axes : 042 017 -10 degrees QTc Int : 458 ms Normal sinus rhythm Inferior infarct (cited on or before 04-JUL-2017) Abnormal ECG When compared with ECG of 05-JUL-2017 06:53, QRS duration has increased ST no longer elevated in Inferior leads ST no longer depressed in Lateral leads T wave inversion no longer evident in Anterior leads Confirmed by JOSEFA NICHOLAS (2) on 03/19/2018 5:47:08 PM Referred By: KRISHNA Confirmed By:JOSEFA NICHOLAS
--- NOTE | 2018-03-21 09:15 | RAD ---
LEFT WRIST THREE VIEWS: History: Post op. FINDINGS: Patient has undergone open reduction and internal fixation of a distal radial fracture with plate and screws. Bony alignment is satisfactory. IMPRESSION: Open reduction and internal fixation of distal radial fracture. POS: DEANGELO
== END 2018-03-17 11:45 | disposition home or self-care (01) ==
LOC: SDC 05:49
PROVIDERS: ATTEND Orthopaedic Surgery
PROC: 0PSJ04Z Reposition Left Radius with Internal Fixation Device, Open Approach (ICD-10-PCS; principal; 2018-03-17)
DX: S52.532A Colles' fracture of left radius, initial encounter for closed fracture (principal); I25.10 Atherosclerotic heart disease of native coronary artery without angina pectoris; I10 Essential (primary) hypertension; E78.5 Hyperlipidemia, unspecified; Z87.891 Personal history of nicotine dependence; Z79.02 Long term (current) use of antithrombotics/antiplatelets; Z79.82 Long term (current) use of aspirin; Z79.899 Other long term (current) drug therapy; Z88.0 Allergy status to penicillin; Z95.5 Presence of coronary angioplasty implant and graft; W11.XXXA Fall on and from ladder, initial encounter
CPT/HCPCS: 25607; 73110; 76001; 80048; 85027; 93005; 96374; 96375; C1713 ×2; 93010; A4216; J2001; J2250; J2270; J3010; J3490

== ENCOUNTER 2025-05-08 08:42 | Outpatient (CLI) | payer MEDICARE | END 2025-05-08 08:43 | disposition home or self-care (01) | LOC: SCSBT 08:42 | PROVIDERS: ATTEND Family Medicine | DX: Z78.0 Asymptomatic menopausal state (principal); M81.0 Age-related osteoporosis without current pathological fracture | CPT/HCPCS: 77080 ==